=== PATIENT | female | born 1955 | race African-American/Black ===

== ENCOUNTER 2018-12-21 05:45 | Inpatient (IN) | payer OTHER ==
[2018-12-14 09:46] VITALS: BMI 25.7
[2018-12-21] MEDS ORDERED: CELECOXIB 200 MG CAPSULE PO ONE (06:36)
[2018-12-21] MEDS ORDERED: TRANEXAMIC ACID 1000 MG/10 ML VIAL IVPUSH ONE (06:36)
[2018-12-21] MEDS ORDERED: oxyCODONE HCL 10 MG SUSTAINED ACTING TABLET PO ONE (06:36)
[2018-12-21] MEDS ORDERED: CEFAZOLIN 2 GM/D5W 2 GM/50 ML ML IVPB ONE (06:36)
[2018-12-21] MEDS ORDERED: PANTOPRAZOLE 40 MG TABLET (FP) PO ONE (06:37)
[2018-12-21] MEDS ORDERED: ceFAZolin SODIUM 1 GM VIAL ONE (07:06)
[2018-12-21] MEDS ORDERED: VANCOMYCIN 1,000 MG VIAL (RESTRICTED TO ID ONLY) ONE (07:06)
--- NOTE | 2018-12-21 07:14 | HP ---
Admitting History and Physical - Admission Chief Complaint: right knee osteoarthritis x years History of Present Illness: 63 year old female presents in regard to their right knee. Long-standing history of right knee osteoarthritis. Patient complains of pain, limited range of motion, difficulty ambulating, and difficulty with activities of daily living. Patient has failed conservative treatment options including PO medications, activity modification, injections, and exercise programs. At this point, patient like to proceed with surgical intervention, right total knee arthroplasty MAKOplasty. History Source: Patient - Past Medical History Cardiovascular: Yes: HTN, Hyperlipdemia Musculoskeletal: Yes: Osteoarthritis - Past Surgical History Additional Past Surgical History: See written history & physical. - Smoking History Smoking history: Never smoked Have you smoked in the past 12 months: No - Alcohol/Substance Use Hx Alcohol Use: No Home Medications - Allergies Allergies/Adverse Reactions: Allergies Allergy/AdvReac Type Severity Reaction Status Date / Time Ieefuly-Xtf-Cdl Reductase AdvReac Severe JOINT Verified 12/14/18 09:32 Inhibitor SWELLING/ACHING - Home Medications Home Medications: Ambulatory Orders Biotin 5,000 mcg PO DAILY 11/23/15 Amlodipine Besylate [Norvasc -] 10 mg PO DAILY tablet 01/12/16 Aspirin [ASA -] 81 mg PO DAILY 12/14/18 Cider Vinegar [Apple Cider Vinegar] 500 mg PO BID 12/14/18 Cinnamon Bark [Cinnamon] 500 mg PO BID 12/14/18 Ezetimibe [Zetia] 10 mg PO DAILY 12/14/18 Fenofibrate 120 mg PO DAILY 12/14/18 Gabapentin 800 mg PO HS 12/14/18 Metoprolol Succinate [Toprol Xl] 50 mg PO HS 12/14/18 Nabumetone 750 mg PO BID 12/14/18 Olmesartan Medoxomil 40 mg PO DAILY 12/14/18 Review of Systems - Review of Systems Musculoskeletal: reports: Crepitus (right knee), Decreased ROM (right knee), Joint Pain (right knee), Joint Swelling (right knee) Physical Examination Vital Signs: Vital Signs Temperature 98.0 F 12/21/18 07:02 Pulse Rate 63 12/21/18 07:02 Respiratory Rate 18 12/21/18 07:02 Blood Pressure 142/84 12/21/18 07:02 O2 Sat by Pulse Oximetry (%) Constitutional: Yes: Well Nourished, No Distress Eyes: Yes: Conjunctiva Clear HENT: Yes: Atraumatic Neck: Yes: Supple Cardiovascular: Yes: Regular Rate and Rhythm Respiratory: Yes: Regular Gastrointestinal: Yes: Soft ...Rectal Exam: Yes: Deferred Musculoskeletal: Yes: Joint Stiffness (right knee), Joint Swelling (right knee) Assessment/Plan 63 year old female presents in regard to their right knee. Long-standing history of right knee osteoarthritis. Patient complains of pain, limited range of motion, difficulty ambulating, and difficulty with activities of daily living. Patient has failed conservative treatment options including PO medications, activity modification, injections, and exercise programs. At this point, patient like to proceed with surgical intervention, right total knee arthroplasty MAKOplasty. Pros, cons, risks, benefits, and alternatives of a right total knee arthroplasty - MAKOplasty were discussed with the patient at length. Patient confirms their understanding and consents to proceed with a right total knee arthroplasty MAKOplasty.
[2018-12-21] MEDS ORDERED: PROPOFOL 20 ML ONE ×3 (07:31→07:33)
[2018-12-21] MEDS ORDERED: ONDANSETRON 4 MG/2 ML VIAL ONE (07:31)
[2018-12-21] MEDS ORDERED: PHENYLEPHRINE HCL 10 MG/1 ML SINGLE DOSE VIAL ONE (07:35)
[2018-12-21] MEDS ORDERED: ePHEDrine SULFATE 50 MG/1 ML AMPULE ONE (07:35)
[2018-12-21] MEDS ORDERED: BUPIVACAINE LIPOSOME/PF (EXPAREL) 266 MG/20 ML VIAL ONE (07:37)
[2018-12-21] MEDS ORDERED: MIDAZOLAM HCL 2 MG/2 ML SINGLE DOSE VIAL ONE ×2 (07:37→08:05)
[2018-12-21] MEDS ORDERED: SODIUM CHLORIDE 0.9% P/F 10 ML VIAL IJ ONE (07:38)
--- NOTE | 2018-12-21 11:02 | OP ---
Operative Note - Note: Operative Date: 12/21/18 Pre-Operative Diagnosis: right knee OA Operation: right EDDIE TKA Post-Operative Diagnosis: Same as Pre-op Surgeon: Gus Veronica Senior Account Executive: Pippa Ann Anesthesia: Spinal Estimated Blood Loss (mls): 200
[2018-12-21] MEDS ORDERED: ACETAMINOPHEN 1000 MG/100 ML VIAL (NON FORMULARY) IVPB ONE (11:08)
[2018-12-21] MEDS ORDERED: MAGNESIUM HYDROX 2400MG/30ML ORAL SUSPENSION 30 ML CUP PO PRN (11:12)
[2018-12-21] MEDS ORDERED: MAG HYDROX/AL HYDROX/SIMETH 30 ML UNIT-DOSE CUP PO PRN (11:12)
[2018-12-21] MEDS ORDERED: traMADol HCL 50 MG TABLET PO SCH (11:15)
[2018-12-21] MEDS: KETOROLAC TROMETHAMINE 30 MG/1 ML VIAL IVPUSH SCH ×3 (11:15→22:48)
[2018-12-21] MEDS ORDERED: LACTATED RINGERS SOLUTION 1,000 ML IV SCH (11:15)
[2018-12-21] MEDS ORDERED: oxyCODONE HCL 5 MG TABLET PO PRN (12:08)
[2018-12-21] MEDS: LACTATED RINGERS SOLUTION 1,000 ML IV SCH (13:46)
[2018-12-21] MEDS: oxyCODONE HCL 5 MG TABLET PO PRN (15:33)
--- NOTE | 2018-12-21 15:52 | SPEC ---
DATE OF OPERATION: 12/21/2018 PREOPERATIVE DIAGNOSIS: Right knee osteoarthritis. POSTOPERATIVE DIAGNOSIS: Right knee osteoarthritis. PROCEDURE: Right total knee replacement with MAKOplasty robotic navigation. ATTENDING: Alexa Noble MD NAILER MACHINE: GREGORY Hernández ANESTHESIA: Spinal plus sedation. ESTIMATED BLOOD LOSS: 200 mL. COMPLICATIONS: None. DISPOSITION: The patient was transferred to the PACU in stable condition. IMPLANTS USED: Tad Triathlon size 3 femoral component, size 2 tibial component, 13-mm polyethylene component, 29-mm patellar component. INDICATIONS: This is a 63-year-old female who presents to the office complaining of severe right knee pain. She was seen and examined by Dr. Noble and diagnosed with severe right knee osteoarthritis. The patient was initially treated nonoperatively with injections, medications, and physical therapy but continued to have severe pain and ambulatory dysfunction. She was, therefore, indicated for a right total knee replacement. The risks, benefits, and alternatives to the surgery were explained to the patient in great detail, and she elected to proceed with the procedure. DESCRIPTION OF PROCEDURE: On the day of surgery, the patient was taken to the operating room and placed on the OR table. Spinal anesthesia was administered by the anesthesiologist. The patient was then positioned supine on the table and all bony prominences were padded. The knee was then prepped and draped in the usual sterile fashion and intravenous antibiotics were given for infection prophylaxis. A surgical time-out was then performed with the team, and the patients identity, procedure, side, availability of implants, and the administration of antibiotics was confirmed. With the knee flexed, a midline incision was made and carried down through the subcutaneous fat to the underlying retinaculum. A medial parapatellar arthrotomy was performed. This was followed by a subperiosteal dissection of the tissue off the proximal, medial tibia. A portion of fat pad was removed from under the patellar tendon, and a small portion of fat was excised off the distal supracondylar femur. Electrocautery and an Aquamantys bipolar sealing device were used to achieve hemostasis. The knee was then flexed further and the anterior horn of the lateral meniscus was released from the midline. Next, the anterior and posterior cruciate ligaments were transected. Grade 4 changes were noted diffusely throughout the knee. Femoral and tibial checkpoints were then placed in the appropriate location using a mallet. Two parallel bicortical self-drilling pins were placed in the tibial diaphysis after making stab incisions and bluntly dissecting down to bone. Two pins were then placed in the distal supracondylar femur. The [employer] navigation arrays were then attached to both the femoral and tibial pins and the lower extremity was then registered to the robotic navigation device using various joint movements, as well as inputting several dozen reference points. The knee was then taken through a full range of motion with a corrective force applied. Alignment in varus/valgus as well as flexion/extension and soft tissue balance was measured in various positions. The navigation device showed a numerical and graphic representation of the soft tissue balance. The components were repositioned virtually using the software until optimal soft tissue balance was achieved on screen. Once this was accomplished, the final plan was saved and sent to the robot. Self-retaining retractors were then placed at the joint line for exposure and protection of the collateral ligaments. The robot was brought into the sterile field and registered with the navigation device. The robotic arm with attached oscillating saw blade was then used to perform femoral and tibial bone cuts as per the saved software plan. The femoral box cut was made using the appropriately sized manual cutting guide. The knee was then irrigated. Trial components were placed and the knee was taken through a full range of motion to assess soft tissue balance and alignment. The range of motion was found to be excellent and the soft tissue balance was optimal and according to plan. The knee was then put into extension and the patella everted. The synovium around the patella was circumscribed with electrocautery. A caliper was used to measure the patellar thickness and a saw was then used to resect the patella at the chondro-osseous junction. The cut surface was then sized and drilled for the appropriate patellar button, with care taken to medialize it. A trial patella was then placed and the knee was again taken through a full range of motion. The knee was found to have both good balance and good patellar tracking. All of the components were removed except the tibial base plate. The appropriate instrumentation was used to drill and punch the proximal tibia for the keel of the final component. All bony surfaces were then cleaned with pulsatile lavage and dried. Bone cement was then prepared on the back table, and final components were cemented in place in the usual fashion. Extruded cement was removed. The polyethylene trial was placed, the knee was put into extension, and axial pressure was applied for compression while the cement hardened. The patellar button was similarly cemented into place. Once the cement had hardened, the knee was taken through a full range of motion to assess stability, balance, and patellar tracking. This was found to be optimal and the trial polyethylene was exchanged for the appropriately sized real implant. The wound was then thoroughly irrigated with normal saline. A 3-minute dilute Betadine lavage was performed. The knee was again irrigated using a pulsatile lavage device. A periarticular injection was used to locally infiltrate the capsular tissues surrounding the implant and prosthesis. Then No. 1 Polysorb and 0 VLoc 180 barbed sutures were used to close the arthrotomy. Then No. 1 Polysorb and 2-0 VLoc 90 sutures were used in the subcutaneous tissues. Then 4-0 undyed Vicryl and Dermabond skin adhesive was used to close the stab incisions made for the navigation pins. The skin was closed using both 3-0 VLoc 90 suture in a running subcuticular fashion and Dermabond skin adhesive. Once this was completed a sterile Aquacel dressing and compressive Shekhar-wrap was applied. The patient was then awakened and taken to the PACU in stable condition. ALEXA NOBLE M.D. [id number]
[2018-12-21] MEDS: ONDANSETRON 4 MG/2 ML VIAL IVPUSH PRN (18:01)
[2018-12-21] MEDS: CEFAZOLIN 2 GM/D5W 2 GM/50 ML ML IVPB SCH (18:02)
[2018-12-21] MEDS: ACETAMINOPHEN 325 MG TABLET (FP) PO SCH (18:31)
[2018-12-21] MEDS: traMADol HCL 50 MG TABLET PO SCH ×2 (18:49→23:39)
[2018-12-21] MEDS ORDERED: DEXAMETHASONE SOD PHOSPHATE 10 MG/1 ML VIAL IVPB ONE (20:00)
[2018-12-21] MEDS: CELECOXIB 200 MG CAPSULE PO SCH (21:02)
[2018-12-21] MEDS: SENNOSIDES/DOCUSATE COMBO (SENNA PLUS) TABLET (UD) PO SCH (21:02)
[2018-12-21] MEDS: ASCORBIC ACID 500 MG TABLET (FP) PO SCH (21:03)
[2018-12-21] MEDS: GABAPENTIN 400 MG CAPSULE (FP) PO SCH (21:03)
[2018-12-21] MEDS: oxyCODONE HCL 10 MG SUSTAINED ACTING TABLET PO SCH (21:03)
[2018-12-21] MEDS ORDERED: PATIENT'S OWN MEDICATION (NON-FORMULARY) (Gabapentin [Gabapentin] 800 MG) PO SCH (22:00)
[2018-12-22] MEDS: ACETAMINOPHEN 325 MG TABLET (FP) PO SCH ×4 (02:49→18:26)
[2018-12-22] MEDS: CEFAZOLIN 2 GM/D5W 2 GM/50 ML ML IVPB SCH ×2 (02:49→09:44)
[2018-12-22] MEDS: traMADol HCL 50 MG TABLET PO SCH ×3 (05:33→18:25)
[2018-12-22] MEDS: KETOROLAC TROMETHAMINE 30 MG/1 ML VIAL IVPUSH SCH (05:33)
[2018-12-22 07:09] LABS: HEMOGLOBIN 12.5 GM/dl (10.7-15.3); MCH 26.9 pg (25.7-33.7); MCHC 31.9 g/dl (32.0-36.0); MEAN CELL VOLUME 84.3 fl (80-96); MEAN PLT VOLUME 9.5 fl (7.5-11.1); PLATELET COUNT 216 K/MM3 (134-434); RBC 4.63 M/mm3 (3.60-5.2); RDW 13.8 % (11.6-15.6); WHITE BLOOD COUNT 6.6 K/mm3 (4.0-10.8)
[2018-12-22 07:17] LABS: CALCIUM 9.2 mg/dl (8.5-10); CREATININE 0.8 mg/dl (0.55-1.3); POTASSIUM 5.2 mmol/L (3.5-5.1)
--- NOTE | 2018-12-22 09:06 | PN ---
Progress Note (short form) - Note Progress Note: Anesthesia Post op Pt seen and examined S:Alert and awake comfortable O: Vital Signs Temperature 97.3 F L 12/22/18 06:00 Pulse Rate 60 12/22/18 06:00 Respiratory Rate 19 12/22/18 06:00 Blood Pressure 150/67 12/22/18 06:00 O2 Sat by Pulse Oximetry (%) 100 12/22/18 06:34 CBC, BMP 12/22/18 07:00 12/22/18 07:00 A/P:s/ right total knee replacement s/p Doing well post op Continue current care Joel Saravia MD
[2018-12-22] MEDS: EZETIMIBE 10 MG TABLET (FP) PO SCH (09:31)
[2018-12-22] MEDS: PANTOPRAZOLE 40 MG TABLET (FP) PO SCH (09:32)
[2018-12-22] MEDS: ASCORBIC ACID 500 MG TABLET (FP) PO SCH ×2 (09:32→21:18)
[2018-12-22] MEDS: MULTIVITAMINS (DAILY MVI) TABLET (FP) PO SCH (09:32)
[2018-12-22] MEDS: amLODIPine BESYLATE 10 MG TABLET (FP) PO SCH (09:32)
[2018-12-22] MEDS: CELECOXIB 200 MG CAPSULE PO SCH ×2 (09:33→21:18)
[2018-12-22] MEDS: SENNOSIDES/DOCUSATE COMBO (SENNA PLUS) TABLET (UD) PO SCH ×2 (09:33→21:18)
[2018-12-22] MEDS: FENOFIBRIC ACID 135 MG CAP PO SCH (09:34)
[2018-12-22] MEDS: APIXABAN 2.5 MG TABLET PO SCH ×2 (09:34→21:18)
[2018-12-22] MEDS: oxyCODONE HCL 10 MG SUSTAINED ACTING TABLET PO SCH ×2 (09:35→22:28)
[2018-12-22] MEDS: VALSARTAN 160 MG TABLET (UD) PO SCH (09:40)
[2018-12-22] MEDS ORDERED: PATIENT'S OWN MEDICATION (NON-FORMULARY) (Olmesartan Medoxomil [Olmesartan Medoxomil] 40 M PO SCH (10:00)
[2018-12-22] MEDS ORDERED: FENOFIBRATE 120 MG PO SCH (10:00)
--- NOTE | 2018-12-22 12:59 | PN ---
Progress Note (short form) - Note Progress Note: Pt seen and examined. Doing well. AVSS Selected Entries 12/22/18 14:41 Temperature 98.2 F Pulse Rate 66 Respiratory 16 Rate Blood Pressure 116/52 L O2 Sat by Pulse 96 Oximetry (%) Laboratory Tests 12/22/18 12/22/18 07:00 07:00 WBC 6.6 Hgb 12.5 Hct 39.0 Plt Count 216 Sodium 137 Potassium 5.2 H Chloride 104 Carbon Dioxide 26 Anion Gap 7 L BUN 16.0 Creatinine 0.8 Est GFR (CKD-EPI)AfAm 92.22 Random Glucose 149 H Calcium 9.2 Gen: NAD RLE: c/d/i, NVID A/P POD#1 s/p R TKA PT/OOB D/C home in AM
--- NOTE | 2018-12-22 12:59 | DS ---
Physical Examination Vital Signs: Vital Signs Temperature 97.8 F 12/22/18 09:42 Pulse Rate 60 12/22/18 06:00 Respiratory Rate 18 12/22/18 09:42 Blood Pressure 122/59 L 12/22/18 09:42 O2 Sat by Pulse Oximetry (%) 100 12/22/18 09:00 Labs: CBC, BMP 12/22/18 07:00 12/22/18 07:00 Discharge Summary Problems reviewed: Yes Reason For Visit: RIGHT KNEE OSTEOARTHRITIS Current Active Problems Osteoarthritis of right knee (Acute) Procedures: Principal: right TKA Hospital Course: Admitted for elective surgery. Procedure performed without complications. Pt received postoperative antibiotic prophylaxis and DVT ppx. Ambulated with physical therapy. Stable for discharge home with outpatient followup. Condition: Stable - Instructions Diet, Activity, Other Instructions: Dr. Veronica - Knee Replacement Instructions Keep the Aquacel dressing on until removed by Dr. Veronica in 10-14 days - it is antibacterial and waterproof and you can shower with it on. Call the office for a follow-up appointment with Dr. Veronica in 10-14 days. Take ELIQUIS 2.5mg twice daily for 35 days to prevent blood clots in your legs. Take one Pantoprazole 40mg daily for 6 weeks to protect against heartburn and ulcers. Take Cephalexin (antibiotic) 3x/day for 10 days to help prevent skin infection. Take a multivitamin, stool softener, and extra Vitamin C supplement daily. For pain: *Mild pain (1-3/10): Take 1 Tramadol tablet every 4 hours as needed. Moderate pain (4-6/10): Take 1 Tramadol tablet and 1 Percocet tablet every 4 hours as needed. Severe pain (7-10/10): Take 1 Tramadol tablet and 2 Percocet tablets every 4 hours as needed. Activity: You can put as much weight on the operative leg as you want. Right after you get home, there will be a physical therapist coming to your house to help you walk around and bend/straighten your knee. After your follow-up appointment, you will be sent for more intensive outpatient physical therapy which will include machines and equipment that the home therapist cannot bring to your house. Always use a walker or cane for balance and to prevent falls. Expect to see swelling/bruising from the operative site all the way down to your toes. Wear the compression stocking on the operative side during the day to minimize how much swelling there is in your foot/ankle. Don't wear the stocking at night. You don't have to wear a stocking on the other side. Disposition: [facility]/HOME HEALTH CARE - Home Medications Comprehensive Discharge Medication List: Ambulatory Orders Biotin 5,000 mcg PO DAILY 11/23/15 Amlodipine Besylate [Norvasc -] 10 mg PO DAILY tablet 01/12/16 Cider Vinegar [Apple Cider Vinegar] 500 mg PO BID 12/14/18 Cinnamon Bark [Cinnamon] 500 mg PO BID 12/14/18 Ezetimibe [Zetia] 10 mg PO DAILY 12/14/18 Fenofibrate 120 mg PO DAILY 12/14/18 Gabapentin 800 mg PO HS 12/14/18 Metoprolol Succinate [Toprol Xl] 50 mg PO HS 12/14/18 Olmesartan Medoxomil 40 mg PO DAILY 12/14/18 Apixaban [Eliquis -] 2.5 mg PO BID #66 tablet 12/22/18 Ascorbic Acid [Vitamin C -] 500 mg PO BID tablet 12/22/18 Cephalexin Monohydrate [Keflex -] 500 mg PO TID #30 capsule 12/22/18 Multivitamins [Multivit ([facility] Formulary)] 1 tab PO DAILY tab 12/22/18 Oxycodone HCl/Acetaminophen [Percocet 5-325 mg Tablet] 1 - 2 tab PO Q4H PRN #60 tablet MDD 10 12/22/18 Pantoprazole Sodium [Protonix -] 40 mg PO DAILY #40 tablet.ec 12/22/18 Sennosides/Docusate Sodium [Pericolace -] 2 tablet PO BID tablet 12/22/18 traMADol HCL [Ultram -] 50 mg PO Q4H PRN #42 tablet MDD 6 12/22/18
[2018-12-22] MEDS: LACTATED RINGERS SOLUTION 1,000 ML IV SCH (15:51)
[2018-12-22] MEDS: GABAPENTIN 400 MG CAPSULE (FP) PO SCH (21:18)
[2018-12-23] MEDS: oxyCODONE HCL 5 MG TABLET PO PRN (04:00)
[2018-12-23] MEDS: ACETAMINOPHEN 325 MG TABLET (FP) PO SCH ×2 (05:20)
[2018-12-23] MEDS: traMADol HCL 50 MG TABLET PO SCH ×2 (06:30)
[2018-12-23 07:11] LABS: HEMATOCRIT 31.8 % (32.4-45.2); HEMOGLOBIN 10.6 GM/dl (10.7-15.3); MCH 27.5 pg (25.7-33.7); MCHC 33.5 g/dl (32.0-36.0); MEAN CELL VOLUME 82.2 fl (80-96); MEAN PLT VOLUME 9.9 fl (7.5-11.1); PLATELET COUNT 193 K/MM3 (134-434); RBC 3.86 M/mm3 (3.60-5.2); RDW 13.6 % (11.6-15.6); WHITE BLOOD COUNT 6.3 K/mm3 (4.0-10.8)
[2018-12-23] MEDS: ONDANSETRON 4 MG/2 ML VIAL IVPUSH PRN (07:41)
[2018-12-23 09:07] VITALS: PULSE 64; TEMP 98.5
[2018-12-23] MEDS: EZETIMIBE 10 MG TABLET (FP) PO SCH (09:07)
[2018-12-23] MEDS: amLODIPine BESYLATE 10 MG TABLET (FP) PO SCH (09:07)
[2018-12-23] MEDS: VALSARTAN 160 MG TABLET (UD) PO SCH (09:08)
[2018-12-23] MEDS: ASCORBIC ACID 500 MG TABLET (FP) PO SCH (09:08)
[2018-12-23] MEDS: oxyCODONE HCL 10 MG SUSTAINED ACTING TABLET PO SCH (09:09)
[2018-12-23] MEDS: FENOFIBRIC ACID 135 MG CAP PO SCH (09:09)
[2018-12-23] MEDS: APIXABAN 2.5 MG TABLET PO SCH (09:09)
[2018-12-23] MEDS: SENNOSIDES/DOCUSATE COMBO (SENNA PLUS) TABLET (UD) PO SCH (09:09)
[2018-12-23] MEDS: PANTOPRAZOLE 40 MG TABLET (FP) PO SCH (09:09)
[2018-12-23] MEDS: MULTIVITAMINS (DAILY MVI) TABLET (FP) PO SCH (09:09)
[2018-12-23] MEDS: CELECOXIB 200 MG CAPSULE PO SCH (09:10)
[2018-12-23 11:40] VITALS: BP 110/70
--- NOTE | 2018-12-23 16:16 | PATH ---
Surgical Pathology Report Patient Name: TMI NELSON Med. Rec. #: [id number] /Age/Gender: 1955 (Age: 63) / F Account: [id number] Location: [facility] MED-SURG Taken: 12/21/2018 Received: 12/21/2018 Reported: 12/23/2018 Physicians: Gus Veronica M.D. Specimen(s) Received RIGHT KNEE BONES Clinical History Right knee arthroplasty Final Diagnosis THE BONES, RIGHT, TOTAL KNEE REPLACEMENT: DEGENERATIVE JOINT DISEASE. SYNOVIUM SHOWING REACTIVE HYPERPLASIA AND DENSE LYMPHOPLASMACYTIC INFILTRATE. (SEE NOTE) Note: These features are non-specific but may be seen in association with rheumatoid arthritis. Correlation with clinical and serologic findings is recommended. Electronically Signed Bianca Yu M.D. Gross Description Received in formalin labeled "right knee bones," is a 12.0 x 9.0 x 1.0 cm aggregate of multiple portions of bone and soft tissue, consistent with knee bones. There is a 3.3 cm greatest dimension area of eburnation present. The remaining articular surfaces are lopez- brown and diffusely granular. The underlying trabecular bone is yellow and hard. Ply Cutter sections are submitted in one cassette, following decalcification. 12/22/2018
== END 2018-12-23 11:42 | disposition home health service (06) | DRG 470 ==
LOC: FM/S 05:45
PROVIDERS: ADMIT Student in an Organized Health Care Education/Training Program; ATTEND Student in an Organized Health Care Education/Training Program
PROC: 8E0Y0CZ Robotic Assisted Procedure of Lower Extremity, Open Approach (ICD-10-PCS; 2018-12-21)
PROC: 0SRC0J9 Replacement of Right Knee Joint with Synthetic Substitute, Cemented, Open Approach (ICD-10-PCS; principal; 2018-12-21 08:00)
DX: M17.11 Unilateral primary osteoarthritis, right knee (principal); I10 Essential (primary) hypertension; E78.5 Hyperlipidemia, unspecified
CPT/HCPCS: 36415; 73560-TC-RT-FY; 80048; 82962; 85027; 86803; 87389; 88304-TC; 88311-TC; 94760; 97116-GP; 97163-GP; J0131; J1100